=== PATIENT | female | born 1945 | race African-American/Black ===

== ENCOUNTER → 2017-05-20 | Outpatient (CLI) | payer MEDICARE ==
[~2017-05-20] MED LIST: AMLO2.5T45 PO; ASCO1TAB39 PO; ASPI-1079 PO; CALC-824 MT; CHOL100044 GT; ESTR42.510 VG; GLUC1TAB90 PO; OLME40TA11 PO; TESTOSTERONE TOP; VITA400T9 PO; [UNRECOGNIZED DRUG - OTHER]
== END | disposition home or self-care (01) ==
LOC: MAMMO 10:19
PROVIDERS: ATTEND Specialist
DX: Z12.31 Encounter for screening mammogram for malignant neoplasm of breast (principal)
CPT/HCPCS: 77067

== ENCOUNTER 2018-02-10 22:26 | Inpatient (IN) | payer MEDICARE ==
[~2018-02-10] VITALS: Ht 172.7 cm; Wt 55.8 kg
[~2018-02-10 22:26] MED LIST changes: -TESTOSTERONE TOP
[2018-02-10] MEDS ORDERED: ONDANSETRON HCL 4MG/2ML INJ IV STA (23:20)
[2018-02-10] MEDS ORDERED: MORPHINE SULFATE 4 MG/ML CPJ (NOT FOR IM USE) IV STA (23:20)
[2018-02-10] MEDS ORDERED: SODIUM CHLORIDE 0.9% 1,000 ML IV ONE (23:20)
[2018-02-10] MEDS ORDERED: DIATR MEGLU/DIATRIZOATE SOLN 30ML ONE (23:58)
[2018-02-11 00:13] LABS: HEMOGLOBIN. 13.3 g/dL (12.0-16.0); MEAN CORPUSCULAR HEMOGLOBIN 30.3 pg (28.0-32.0); MEAN CORPUSCULAR VOLUME 93.4 fL (81.0-99.0); MEAN PLATELET VOLUME 8.8 fl (7.4-10.4); PLATELET 261 x1000/uL (130-400); RED BLOOD CELL COUNT 4.39 mill/uL (4.2-5.4); RED CELL DISTRIBUTION WIDTH 15.4 % (11.6-14.6)
[2018-02-11] MEDS: INSULIN LISPRO 100 UNITS/ML SUBCUT SCH ×2 (00:15→17:50)
[2018-02-11 00:20] LABS: INR 1.1; PARTIAL THROMBOPLASTIN TIME 20.4 sec (23.4-31.0); PROTHROMBIN TIME 10.7 sec (9.1-11.1)
[2018-02-11 00:21] LABS: CHLORIDE 102 mEq/L (98-107)
[2018-02-11 00:56] LABS: CLARITY URINE CLEAR (CLEAR); COLOR URINE YELLOW (YELLOW); KETONES URINE 4+ (NEGATIVE); LEUKOCYTE ESTERASE URINE NEGATIVE (NEGATIVE); NITRITE URINE NEGATIVE (NEGATIVE); OCCULT BLOOD URINE NEGATIVE (NEGATIVE); PROTEIN URINE TRACE (NEGATIVE); SPECIFIC GRAVITY URINE 1.025 (1.005-1.030); UROBILINOGEN URINE 0.2 E.U./dL (0.2-1.0)
[2018-02-11 01:29] LABS: PLATELET ESTIMATE NORMAL
[2018-02-11] MEDS ORDERED: IOHEXOL-300 100 ML BOTTLE ONE (02:54)
[2018-02-11] MEDS ORDERED: ONDANSETRON HCL 4MG/2ML INJ IV STA (04:32)
[2018-02-11] MEDS ORDERED: MORPHINE SULFATE 4 MG/ML CPJ (NOT FOR IM USE) IV STA (04:32)
[2018-02-11] MEDS ORDERED: ENALAPRIL 1.25MG/ML VIAL 1ML IV PRN (15:00)
[2018-02-11] MEDS ORDERED: MORPHINE SULFATE 4 MG/ML CPJ (NOT FOR IM USE) IV PRN (15:00)
[2018-02-11 16:00] VITALS: BP 139/52
[2018-02-11] MEDS ORDERED: ACETAMINOPHEN 650MG SUPP PR PRN (17:00)
[2018-02-11] MEDS: DEXT 5%/0.45% NACL KCL 30MEQ/L 1,000 ML IV SCH (17:04)
[2018-02-11] MEDS ORDERED: DEXTROSE 50% WATER 50ML SYRINGE IV PRN (17:45)
[2018-02-11] MEDS ORDERED: LEVOFLOXACIN 500MG PREMIX 100 ML IV SCH (18:30)
[2018-02-11] MEDS: BLOOD SUGAR DIAGNOSTIC STRIP TEST SCH (18:53)
[2018-02-11 19:29] VITALS: BP 142/54
[2018-02-11 20:00] VITALS: BP 132/52
[2018-02-11] MEDS: AMLODIPINE 2.5MG TABLET PO SCH (21:00)
[2018-02-12] VITALS: BP 118/51
[2018-02-12] MEDS: BLOOD SUGAR DIAGNOSTIC STRIP TEST SCH ×4 (00:56→18:10)
[2018-02-12 05:11] VITALS: BP 133/71
[2018-02-12] MEDS: INSULIN LISPRO 100 UNITS/ML SUBCUT SCH ×4 (05:45→21:00)
[2018-02-12 08:00] VITALS: BP 140/69
[2018-02-12] MEDS ORDERED: ESTRADIOL VG SCH (09:00)
[2018-02-12] MEDS: ASPIRIN 81MG TABLET PO SCH (09:07)
[2018-02-12] MEDS: AMLODIPINE 2.5MG TABLET PO SCH ×2 (09:08→21:06)
[2018-02-12] MEDS: CHOLECALCIFEROL (D3) 1000 UNIT TABLET PO SCH (09:08)
[2018-02-12] MEDS: DEXT 5%/0.45% NACL KCL 30MEQ/L 1,000 ML IV SCH ×2 (09:44→21:06)
[2018-02-12 12:00] VITALS: BP 126/60
[2018-02-12 16:00] VITALS: BP 149/60
[2018-02-12] MEDS: LEVOFLOXACIN 250MG PREMIX 50 ML IV SCH (18:15)
[2018-02-12 20:00] VITALS: BP 134/60
[2018-02-13] VITALS: BP 149/64
[2018-02-13 04:00] VITALS: BP 133/62
[2018-02-13] MEDS: INSULIN LISPRO 100 UNITS/ML SUBCUT SCH ×4 (05:44→21:00)
[2018-02-13] MEDS: BLOOD SUGAR DIAGNOSTIC STRIP TEST SCH ×4 (05:44→17:59)
[2018-02-13 08:00] VITALS: BP 137/84
[2018-02-13] MEDS: DEXT 5%/0.45% NACL KCL 30MEQ/L 1,000 ML IV SCH ×2 (09:06→22:20)
[2018-02-13] MEDS: CHOLECALCIFEROL (D3) 1000 UNIT TABLET PO SCH (09:07)
[2018-02-13] MEDS: ASPIRIN 81MG TABLET PO SCH (09:07)
[2018-02-13] MEDS: AMLODIPINE 2.5MG TABLET PO SCH ×2 (09:07→21:00)
[2018-02-13 12:00] VITALS: BP 129/57
[2018-02-13 16:00] VITALS: BP 133/58
[2018-02-13] MEDS: LEVOFLOXACIN 250MG PREMIX 50 ML IV SCH (17:59)
[2018-02-13 20:00] VITALS: BP 110/56
[2018-02-14] VITALS: BP 100/44
[2018-02-14 04:00] VITALS: BP 110/50
[2018-02-14] MEDS: BLOOD SUGAR DIAGNOSTIC STRIP TEST SCH ×2 (06:00)
[2018-02-14] MEDS: INSULIN LISPRO 100 UNITS/ML SUBCUT SCH (06:26)
[2018-02-14 08:00] VITALS: BP 127/57
[2018-02-14] MEDS: AMLODIPINE 2.5MG TABLET PO SCH (08:03)
[2018-02-14] MEDS: CHOLECALCIFEROL (D3) 1000 UNIT TABLET PO SCH (08:03)
[2018-02-14] MEDS: ASPIRIN 81MG TABLET PO SCH (08:03)
[2018-02-14 09:50] VITALS: BP 127/57
== END 2018-02-14 10:18 | disposition home or self-care (01) | DRG 390 ==
LOC: ER 22:26 → 6EST 02-11 04:24 → EDBEDREQSVC 02-11 09:17 → ENRESERV 02-11 09:56 → 6EST 02-11 11:34
PROVIDERS: ADMIT Specialist; ATTEND Specialist
PROC: 0D9670Z Drainage of Stomach with Drainage Device, Via Natural or Artificial Opening (ICD-10-PCS; principal; 2018-02-11)
DX: K56.609 Unspecified intestinal obstruction, unspecified as to partial versus complete obstruction (principal); E11.9 Type 2 diabetes mellitus without complications; K80.20 Calculus of gallbladder without cholecystitis without obstruction; M19.90 Unspecified osteoarthritis, unspecified site; I10 Essential (primary) hypertension; Z96.653 Presence of artificial knee joint, bilateral; Z90.710 Acquired absence of both cervix and uterus; Z90.722 Acquired absence of ovaries, bilateral; Z88.1 Allergy status to other antibiotic agents; Z88.0 Allergy status to penicillin; Z90.79 Acquired absence of other genital organ(s)
CPT/HCPCS: 36415; 43760; 71045; 74018; 74021; 74177; 82962; 83036; 84484; 93005; 96361; 96374; 96375; 99285; C1893; J1956; J2270; J2405; J3480; J7030; Q9963; Q9967